=== PATIENT | male | born 1990 | race Two or more races ===

== ENCOUNTER 2021-10-21 18:32 | Emergency (ER) | payer OTHER ==
[~2021-10-21] VITALS: Ht 182.9 cm; Wt 83.9 kg
== END 2021-10-21 22:56 | disposition home or self-care (01) ==
LOC: ER 18:32
DX: M94.0 Chondrocostal junction syndrome [Tietze] (principal); M62.838 Other muscle spasm; Z20.822 Contact with and (suspected) exposure to COVID-19; Z88.6 Allergy status to analgesic agent